=== PATIENT | female | born 1990 | race Caucasian/White ===

== ENCOUNTER 2016-11-19 18:26 | Emergency (ER) | payer SELFPAY ==
--- NOTE | 2016-11-26 16:05 | ER ---
ADMIT: 11/19/2016 RM/LOC: ER [facility] MR#: [id number] [place], [place] [id number] [address] [place] [address] Emergency Room Report SEX: F AGE: 26 : 1990 DATE: 11/19/2016 The patient has had an abscessed area, very rough and tender, in the medial aspect of the left upper thigh. She has not had any fever, but she states the area is very painful to touch. I went ahead and I numbed the area with epinephrine and lidocaine 2%. The procedure was well tolerated. I used an 11- blade to put a couple of incisions as this is a tunneling forming abscess, better known as hidradenitis suppurativa. I was able to remove some of the discharge, enough to give her some relief, but not enough to remove the whole infection. She is encouraged to follow up with Dr. Flores, surgeon for surgical care. Loose-fitting clothes, good personal hygiene. Tetracycline was started so she can get improvement. Advised not to touch the area with hands that are not clean and gave her a prescription of [place] for pain control and a note for work. SURYA Rashid / Omero Paul MD / jeny JOB #: [id number] CC: Omero Paul MD, Attending Physician UNKNOWN, Family Physician
== END 2016-11-19 21:50 | disposition home or self-care (01) ==
LOC: ER 18:26
PROC: 0H9JXZZ Drainage of Left Upper Leg Skin, External Approach (ICD-10-PCS; principal; 2016-11-19)
DX: L73.2 Hidradenitis suppurativa (principal); J45.909 Unspecified asthma, uncomplicated; F17.210 Nicotine dependence, cigarettes, uncomplicated